=== PATIENT | female | born 1960 | race Caucasian/White ===

== ENCOUNTER 2022-03-02 14:09 | Inpatient (IN) | payer OTHER, SELFPAY ==
[2022-03-02] VITALS (11 sets, daily range): BP systolic 92–116; BP diastolic 46–62; PULSE 74–98; RESP 12–20; TEMP 36.2–36.9; O2SAT 93–100
--- NOTE | ~2022-03-02 | CT_ITS ---
EXAMINATION: CT abdomen pelvis wo con DATE: 03/02/2022 15:04 INDICATION: Right lower quadrant abdominal pain. TECHNIQUE: Computed tomography (CT) of the abdomen and pelvis was performed without intravenous contr ast. Automated exposure control and iterative reconstruction technique were employed. The dose-length product was 301.35 mGy-cm. COMPARISON: CT abdomen and pelvis 11/07/2018 FINDINGS: The visualized portions of the lung bases demonstrate mild atelectasis. No pleural effusion . The heart size normal. No pericardial effusion. There is diffuse hepatic steatosis. The gallbladder is distended, which may be secondary to fasting. The spleen, pancreas, adrenal glands, and right kid lissette are normal. There is mild atrophy of left kidney. There are 3 stones in left kidney measuring up to 12 mm. The appendix is fluid-filled and dilated to 14 mm with surrounding fat stranding, consisten t with appendicitis. There is trace pelvic ascites. There are no pathologically enlarged lymph nodes. There is moderate lumbar spondylosis. IMPRESSION: 1. Acute appendicitis. Reviewed, dictated and finalized at location A. IMPRESSION: 1. Acute appendicitis.
[2022-03-02 14:37] LABS: Basophils Absolute Auto 0.1 K/mm3 (0.0-0.1); Basophils Percent Auto 0.3 % (0.2-1.2); Eosinophils Absolute Auto 0.2 K/mm3 (0-0.3); Eosinophils Percent Auto 1.1 % (0-4.4); Hematocrit 32.2 % (37.0-47.0); Hemoglobin 9.8 g/dL (12.0-15.0); Immature Granulocyte Absolute 0.07 K/mm3 (0.00-0.031); Immature Granulocyte Percent A 0.4 % (0-0.5); Lymphocytes Absolute Auto 2.37 K/mm3 (0.9-3.2); Lymphocytes Percent Auto 12.4 % (18.3-44.2); Mean Corpuscular HGB Conc 30.4 g/dl (32-36); Mean Corpuscular Hemoglobin 25.6 pg (26-34); Mean Corpuscular Volume 84.1 fl (80-100); Mean Platelet Volume 9.2 fl (7.4-10.4); Monocytes Absolute Auto 1.3 K/mm3 (0.1-0.6); Neutrophils Absolute Auto 15.1 K/mm3 (1.3-6.7); Neutrophils Percent Auto 78.8 % (45.5-73.1); Platelet Count Result 266 k/mm3 (150-375); Red Blood Count 3.83 M/mm3 (4.2-5.4); Red Cell Distribution Width 16.7 % (11.5-14.5); White Blood Count 19.1 K/mm3 (4.5-10.0)
--- NOTE | 2022-03-02 14:47 | ED.ABDPAIN ---
HPI - Abdominal Pain General Chief Complaint: Abdominal Pain Stated Complaint: abdominal pain Time Seen by Provider: 03/02/22 14:19 Source: RN notes reviewed History of Present Illness HPI narrative: Patient presents emergency room from home for abdominal pain. Patient states the pain began 2 days ago. The pain is located right lower quadrant does not radiate described as sharp and stabbing. Associated nausea but denies any vomiting or diarrhea. States she did have a low-grade fever at home today states she took Tylenol and ibuprofen this morning with no relief Related Data Allergies Allergy/AdvReac Type Severity Reaction Status Date / Time No Known Allergies Allergy Verified 03/02/22 14:29 Review of Systems Review of Systems: Gen.: Denies fevers or chills ENT: Denies congestion Respiratory: Denies shortness of breath or cough CV: Denies chest pain or palpitations GI: see HPI Musculoskeletal: Denies back pain or muscle pain Neuro: Denies numbness, tingling, weakness or focal weakness Skin: Denies rash Except as documented, all other systems reviewed and negative PMFSH Past Medical History Medical History (Updated 03/02/22 @ 16:12 by Zachary Hooks DO) Hx of ectopic Kidney stones Surgical History Surgical History (Updated 03/02/22 @ 16:06 by Dany Thompson DO) Hx of knee surgery Hx of shoulder surgery Family History Family History (Updated 03/02/22 @ 16:06 by Dany Thompson DO) Mother Breast cancer Sibling Breast cancer Social History Social History Smoking status: Never smoker Exam Narrative: APPEARANCE: No acute distress, nontoxic, resting in bed HEENT: Normocephalic, atraumatic, OMM RESPIRATORY: No respiratory distress, clear to auscultation bilaterally with no rhonchi wheezing or rales CARDIOVASCULAR: RRR s murmur ABDOMINAL: Soft nondistended tender palpation right lower quadrant right upper quadrant no tenderness left upper quadrant left lower quadrant no rebound or guarding MUSCULOSKELETAl: Moves all extremities. No clubbing, cyanosis or edema. NEURO: Awake and alert. Following commands, speech normal, no focal deficits SKIN:: Warm, dry. Normal Color PSYCHIATRIC: Normal affect/mood Course Course Emergency Course: Discussed with Dr. thompson for general surgery who came to see patient in the emergency department will take the patient to the OR at this time Cussed with patient plan for OR in agreement Vital Signs Vital signs: Vital Signs Temperature 97.2 F L 03/02/22 14:10 Pulse Rate 98 03/02/22 14:10 Respiratory Rate 20 03/02/22 14:10 Blood Pressure 98/51 L 03/02/22 14:10 Pulse Oximetry 100 03/02/22 14:10 Temperature 98.5 F 03/02/22 15:37 Pulse Rate 85 03/02/22 15:37 Respiratory Rate 18 03/02/22 15:37 Blood Pressure 96/51 L 03/02/22 15:37 Pulse Oximetry 98 03/02/22 15:37 MDM - Abdominal Pain Lab Data Result diagrams: 03/02/22 14:30 03/02/22 15:53 Labs: Lab Results 03/02/22 03/02/22 03/02/22 Range/Units 14:30 14:30 14:58 WBC 19.1 H (4.5-10.0) K/mm3 RBC 3.83 L (4.2-5.4) M/mm3 Hgb 9.8 L (12.0-15.0) g/dL Hct 32.2 L (37.0-47.0) % MCV 84.1 (80-100) fl MCH 25.6 L (26-34) pg MCHC 30.4 L (32-36) g/dl RDW 16.7 H (11.5-14.5) % Plt Count 266 (150-375) k/mm3 MPV 9.2 (7.4-10.4) fl Immature Gran % (Auto) 0.4 (0-0.5) % Neut % (Auto) 78.8 H (45.5-73.1) % Lymph % (Auto) 12.4 L (18.3-44.2) % Park % (Auto) 7.0 (2.6-8.5) % Eos % (Auto) 1.1 (0-4.4) % Baso % (Auto) 0.3 (0.2-1.2) % Lymph # (Auto) 2.37 (0.9-3.2) K/mm3 Park # (Auto) 1.3 H (0.1-0.6) K/mm3 Eos # (Auto) 0.2 (0-0.3) K/mm3 Baso # (Auto) 0.1 (0.0-0.1) K/mm3 Abs Immat Gran (auto) 0.07 H (0.00-0.031) K/mm3 Absolute Neuts (auto) 15.1 H (1.3-6.7) K/mm3 Absolute Nucleated RBC 0.0
[2022-03-02 14:58] LABS: Lipase 67 U/L (23-300)
[2022-03-02 15:07] LABS: Bilirubin Urine Negative (Negative); Blood Urine 1+ (Negative); Color Urine Yellow (Yellow); Glucose Urine UA Negative (Negative); Ketones Urine Negative (Negative); Leukocyte Esterase Ur 3+ LEU/UL (Negative); Nitrate Urine Positive (Negative); Protein Urine 1+ mg/dL (Negative); Urobilinogen Urine 0.2 mg/dL (<2.0)
[2022-03-02 15:08] LABS: Add Urine Microscopic? YES; Appearance Urine Slightly Cloudy (Clear)
[2022-03-02 15:11] LABS: Bacteria Urine 1+ /hpf; Mucus Urine Rare /lpf; Squamous Epithelial Cell Urine Rare /hpf (Few); WBC Urine >75 /hpf
[2022-03-02] MEDS: ONDANSETRON INJ 4 MG/2 ML VIAL IV PUSH (15:12)
[2022-03-02] MEDS: SODIUM CHLORIDE 0.9% IV 1,000 ML 999 ML IV CONT (15:12)
[2022-03-02] MEDS: KETOROLAC 30 MG/ML VIAL (*BKC) IV PUSH (15:55)
--- NOTE | 2022-03-02 15:58 | PM.IMHP ---
H&P: HPI History of Present Illness Date/Time: 03/02/22 15:58 Chief Complaint: RLQ pain Narrative: This is a 61-year-old woman who presented to the emergency department today with right lower quadrant pain that started yesterday. She had been experiencing right back pain for about a week. She denied any hematuria. She had seen her chiropractor on Wednesday and an x-ray showed evidence of kidney stones. She was then referred to urology who saw the patient today and directed her to the emergency department. She did have a low-grade fever yesterday and has had some nausea. She denies any vomiting. Her bowels have not been moving normally, but she states this is partially due to the pain and that she does not want to strain to have a bowel movement. She has had a history of kidney stones before denies any prior pains quite like this. Review of Systems Review of Systems: All systems reviewed & are unremarkable except as noted in HPI and below Constitutional: Constitutional: Reports fever(s) Eyes: Eyes: Denies change in vision ENT: Denies hearing loss, Denies neck pain and Denies sore throat Cardiovascular: Cardiovascular: Denies chest pain and Denies dyspnea Respiratory: Respiratory: Denies cough, Denies dyspnea and Denies wheezing Gastrointestinal: Gastrointestinal: Reports as per HPI Genitourinary: Genitourinary: Denies hematuria and Denies dysuria Musculoskeletal: Musculoskeletal: Denies arthralgias, Denies joint swelling and Denies neck pain Allergic/Immunologic: Allergic/Immunologic: Denies wheezing PMFSH Past Medical History Medical History (Updated 03/02/22 @ 16:07 by Dany Thompson DO) Hx of ectopic Kidney stones Surgical History Surgical History (Updated 03/02/22 @ 16:06 by Dany Thompson DO) Hx of knee surgery Hx of shoulder surgery Family History Family History (Updated 03/02/22 @ 16:06 by Dany Thompson DO) Mother Breast cancer Sibling Breast cancer Social History Social History Smoking status: Never smoker Meds Home Medications and Allergies Allergies Allergy/AdvReac Type Severity Reaction Status Date / Time No Known Allergies Allergy Verified 03/02/22 14:29 Vital Signs Vital Signs - 24 hr 03/02/22 14:10 03/02/22 15:37 Temperature 36.2 C L 36.9 C Pulse Rate 98 85 Respiratory Rate 20 18 Blood Pressure 98/51 L 96/51 L Pulse Oximetry 100 98 Exam Const: General: alert; No acute distress Orientation/consciousness: patient oriented x3 Limitations: no limitations HENMT: Head: normocephalic and atraumatic Ears: hearing grossly normal bilaterally General nose exam: Normal external nose present and Normal nares present Mouth: Yes Normal oral and palatal mucosa present and Yes moist mucous membranes Eyes: General: appearance normal, both eyes and all related structures Conjunctivae: conjunctivae normal Sclera: sclerae normal Pupils: Equal, round and reactive pupils present EOM: EOMs intact bilaterally Neck: Neck: normal visual inspection, full ROM, no lymphadenopathy, supple and no JVD Lymphatic: no lymphadenopathy noted Chest: Chest palpation & inspection: normal inspection of the chest Resp: Effort & Inspection: normal respiratory effort and able to speak in complete sentences Auscultation: clear to auscultation bilaterally Percussion: percussion normal Cardio: Jugular venous distension: no JVD Rate: regular rate Rhythm: regular rhythm Heart sounds: S1 normal heart sound present and S2 normal heart sound present Peripheral pulses: Peripheral pulses 2+ throughout GI: Inspection: distended GI Palp: No abdominal tenderness, Yes Soft to palpation, Yes Tenderness to palpation present (GI) (R:Q), Yes Guarding due to palpation present (GI) (RLQ), No Hernia present and No Rebound tenderness present Percussion: Yes normal to percussion Auscultation: normal bowel sounds : General:
--- NOTE | 2022-03-02 16:09 | WPDHPUPDATE1 ---
History and Physical Update Update Date/Time: 03/02/22 16:09 History and Physical has been reviewed, including an updated exam of the patient. There are NO changes in the patient's condition. Risks, benefits, and alternatives have been discussed and questions answered. Patient agrees to proceed with procedure.
[2022-03-02 16:10] LABS: Lactic Acid Reflex 0.7 mmol/L (0.7-2.0)
[2022-03-02 16:16] LABS: Alanine Aminotransferase 17 U/L (6-35); Albumin Level 3.5 g/dL (3.5-5.1); Alkaline Phosphatase 83 U/L (38-126); Anion Gap 7 mmol/L (8-16); Aspartate Amino Transferase 25 U/L (14-36); Bilirubin,Total 0.9 mg/dL (0.2-1.3); Blood Urea Nitrogen 22 mg/dL (7-17); Calcium 8.1 mg/dL (8.4-10.2); Carbon Dioxide 27 mmol/L (22-30); Chloride 99 mmol/L (98-107); Estimated CRCL calculation 47 ml/min; Estimated Glomerular Filt Rate 57; Glucose 103 mg/dL (65-110); Potassium 3.7 mmol/L (3.4-5.0); Sodium 133 mmol/L (137-145)
--- NOTE | 2022-03-02 16:44 | WPDANESEPPF ---
Anes - Initial Pre Proc Eval Procedure: Operation Date: 03/02/22 17:30 Proposed Procedures p Laparoscopic Appendectomy Possible Open - Dany Thompson DO Date/Time: 03/02/22 16:44 Surgeon: Dany Thompson DO Pre Op Diagnosis: abdominal pain Patient Data Age: 61 Gender: F Height: 1.57 m Weight: 65.77 kg Last Vital Signs Temp 36.9 C 03/02/22 15:37 Pulse 85 03/02/22 15:37 Resp 18 03/02/22 15:37 BP 96/51 L 03/02/22 15:37 Pulse Ox 98 03/02/22 15:37 Allergies Allergy/AdvReac Type Severity Reaction Status Date / Time No Known Allergies Allergy Verified 03/02/22 14:29 Laboratory Tests 03/02/22 03/02/22 03/02/22 14:30 14:30 14:58 WBC 19.1 K/mm3 H K/mm3 (4.5-10.0) RBC 3.83 M/mm3 L M/mm3 (4.2-5.4) Hgb 9.8 g/dL L g/dL (12.0-15.0) Hct 32.2 % L % (37.0-47.0) MCV 84.1 fl fl (80-100) MCH 25.6 pg L pg (26-34) MCHC 30.4 g/dl L g/dl (32-36) RDW 16.7 % H % (11.5-14.5) Plt Count 266 k/mm3 k/mm3 (150-375) MPV 9.2 fl fl (7.4-10.4) Immature Gran % (Auto) 0.4 % % (0-0.5) Neut % (Auto) 78.8 % H % (45.5-73.1) Lymph % (Auto) 12.4 % L % (18.3-44.2) Alfalfa % (Auto) 7.0 % % (2.6-8.5) Eos % (Auto) 1.1 % % (0-4.4) Baso % (Auto) 0.3 % % (0.2-1.2) Lymph # (Auto) 2.37 K/mm3 K/mm3 (0.9-3.2) Alfalfa # (Auto) 1.3 K/mm3 H K/mm3 (0.1-0.6) Eos # (Auto) 0.2 K/mm3 K/mm3 (0-0.3) Baso # (Auto) 0.1 K/mm3 K/mm3 (0.0-0.1) Abs Immat Gran (auto) 0.07 K/mm3 H K/mm3 (0.00-0.031) Absolute Neuts (auto) 15.1 K/mm3 H K/mm3 (1.3-6.7) Absolute Nucleated RBC 0.0 K/mm3 K/mm3 (0.0-0.012) Nucleated RBC % 0.0 % % (0.0-0.2) Sodium Potassium Chloride Carbon Dioxide Anion Gap BUN Creatinine Estim Creat Clear Calc Estimated GFR Glucose Lactic Acid Calcium Total Bilirubin AST ALT Alkaline Phosphatase Total Protein Albumin Lipase 67 U/L U/L (23-300) Urine Color Yellow (Yellow) Urine Appearance Slightly cloudy (Clear) Urine pH 6.0 (5.0-9.0) Ur Specific Street 1.020 (1.001-1.035) Urine Protein 1+ mg/dL H mg/dL (Negative) Urine Glucose (UA) Negative mg/dL mg/dL (Negative) Urine Ketones Negative mg/dL mg/dL (Negative) Ur Blood (Man) 1+ H (Negative) Urine Nitrate Positive H (Negative) Urine Bilirubin Negative (Negative) Urine Urobilinogen 0.2 mg/dL mg/dL (<2.0) Leukocyte Esterase Rfl 3+ ADRIENNE/UL H ADRIENNE/UL (Negative) Urine RBC 6-10 /hpf H /hpf (0-2) Urine WBC >75 /hpf H /hpf Ur Squamous Epith Cells Rare /hpf /hpf (Few) Urine Bacteria 1+ /hpf H /hpf Urine Mucus Rare /lpf /lpf 03/02/22 03/02/22 15:53 15:53 WBC RBC Hgb Hct MCV MCH MCHC RDW Plt Count MPV Immature Gran % (Auto) Neut % (Auto) Lymph % (Auto) Alfalfa % (Auto) Eos % (Auto) Baso % (Auto) Lymph # (Auto) Alfalfa # (Auto) Eos # (Auto) Baso # (Auto) Abs Immat Gran (auto) Absolute Neuts (auto) Absolute Nucleated RBC Nucleated RBC % Sodium 133 mmol/L L mmol/L (137-145) Potassium 3.7 mmol/L mmol/L (3.4-5.0) Chloride 99 mmol/L mmol/L (98-107) Carbon Dioxide 27 mmol/L mmol/L (22-30) Anion Gap 7 mmol/L L mmol/L (8-16) BUN
[2022-03-02] MEDS: LACTATED RINGERS 1,000 ML 30 ML IV CONT ×2 (16:55→18:34)
[2022-03-02] MEDS: fentaNYL CITRATE INJ (*CRX) 100 MCG/2 ML VIAL 50 MCG IV PUSH (16:56)
--- NOTE | 2022-03-02 18:31 | W.PM.PROC2 ---
Procedure Note - Detailed Date of Procedure 03/02/22 Pre-op Diagnosis Acute appendicitis Post-op Diagnosis Other (Acute perforated appendicitis with intra-abdominal abscess) Procedure Performed 1. Laparoscopic appendectomy 2. Laparoscopic drainage of intra-abdominal abscess Surgeon Dany Thompson, DO Anesthesia General and Local (0.5% bupivicaine with epinephrine) Indications This is a 61-year-old woman who presented to the emergency department with abdominal pain that has been worsening over the past 2 days. She was also experiencing right back pain flank pain for the past week. She was found to have an elevated white blood count and CT showed evidence of acute appendicitis. Discussions were made with the patient about treatment options and decision was made to proceed with laparoscopic appendectomy, possible open. Findings Laparoscopic appendectomy was performed. The appendix was dilated and inflamed and there did appear to be perforation noted near the tip. There was a small abscess between the cecum and appendix in the right lower quadrant. This was drained and suctioned with a suction business analysis professional. No other purulence fluid was noted throughout the remainder of the abdomen. The patient did have some omental adhesions up to the lower midline from her prior surgery. These had to be taken down to adequately visualize the lower abdomen and right lower quadrant. Description of Procedure Procedure as well as risks, benefits, and alternatives were explained to the patient. The patient agreed to proceed. Written consent was obtained and placed in chart prior to procedure. The patient was brought back to surgical suite. She was placed supine on operating table. Time-out was done to confirm the patient and procedure. The patient was then intubated by the Anesthesia Department. Her abdomen was prepped and draped in sterile fashion using chlorhexidine prep. A 5 mm incision was made just to the left of the patient's umbilicus and a 5 mm Optiview trocar was advanced through the abdominal layers under direct visualization. Once inside the peritoneal cavity, carbon dioxide insufflation was used to create a pneumoperitoneum. The camera was inserted and the abdomen was inspected. No immediate abnormalities were identified. The patient was then placed in slight Trendelenburg position and rotated to the left. A 5 mm incision was made in the suprapubic region in midline and a 5 mm trocar was inserted under direct visualization. A 12 mm incision was made in the left lower quadrant and a 12 mm trocar was inserted under direct visualization. The right lower quadrant was carefully inspected. The cecum was identified and then this was traced back to the appendix. There was an abscess noted between the cecum and appendix containing some yellow purulence fluid. This was drained using the suction business analysis professional. The appendix was identified and grasped at the mesoappendix and lifted anteriorly. Careful blunt dissection was carried out at the base of the appendix through the mesoappendix using a [place] grasper. An Endo-HARVEY 45 mm blue load stapler was then advanced across the base of the appendix and clamped and fired. A white reload was then clamped across the mesoappendix and fired. This freed up our appendix completely. It was then placed in an EndoCatch bag and removed through the left lower quadrant port. The staple lines were then inspected. Hemostasis appeared adequate and the staple lines appeared secure. The area was then irrigated with sterile saline. The pelvis was then carefully inspected and irrigated with sterile saline as well and the remainder of the abdomen was carefully inspected. The patient was then flattened out in bed. One final inspection was made around the abdominal cavity and no other abnormalities were seen. The left lower quadrant port was removed and a Jay-Eveline cone was used to approximate the fascia with an 0 Vicryl simple interrupte
[2022-03-02] MEDS: LACTATED RINGERS 1,000 ML 100 ML IV CONT (21:49)
[2022-03-02] MEDS: HYDROcodone/acetaminophen (*CRX) 7.5-325 MG TABLET 1 TAB PO (22:41)
[2022-03-03] VITALS (7 sets, daily range): BP systolic 93–131; BP diastolic 58–72; PULSE 77–98; RESP 16–18; TEMP 36.1–37.1; O2SAT 94–98
[2022-03-03 06:15] LABS: Hematocrit 27.2 % (37.0-47.0); Hemoglobin 8.6 g/dL (12.0-15.0); Mean Corpuscular HGB Conc 31.6 g/dl (32-36); Mean Corpuscular Hemoglobin 26.3 pg (26-34); Mean Corpuscular Volume 83.2 fl (80-100); Mean Platelet Volume 9.6 fl (7.4-10.4); Platelet Count Result 225 k/mm3 (150-375); Red Blood Count 3.27 M/mm3 (4.2-5.4); Red Cell Distribution Width 16.4 % (11.5-14.5); White Blood Count 16.2 K/mm3 (4.5-10.0)
[2022-03-03 06:40] LABS: Anion Gap 3 mmol/L (8-16); Blood Urea Nitrogen 20 mg/dL (7-17); Calcium 8.4 mg/dL (8.4-10.2); Carbon Dioxide 29 mmol/L (22-30); Chloride 105 mmol/L (98-107); Estimated CRCL calculation 52 ml/min; Estimated Glomerular Filt Rate > 60; Glucose 151 mg/dL (65-110); Potassium 4.6 mmol/L (3.4-5.0); Sodium 137 mmol/L (137-145)
[2022-03-03] MEDS: HYDROcodone/acetaminophen (*CRX) 7.5-325 MG TABLET 1 TAB PO (09:23)
[2022-03-03] MEDS: ONDANSETRON INJ 4 MG/2 ML VIAL IV PUSH (09:23)
--- NOTE | 2022-03-03 12:43 | PM.PNGS ---
Progress Note: A&P Assessment and Plan (1) Acute appendicitis: Qualifiers: Acute appendicitis type: with localized peritonitis Appendicitis gangrene presence: without gangrene Appendicitis perforation presence: with perforation Appendicitis abscess presence: with abscess Qualified Code(s): K35.33 - Acute appendicitis with perforation and localized peritonitis, with abscess Code(s): K35.80 - Unspecified acute appendicitis Status: Acute Assessment and Plan: Slowly advanced diet as tolerated. Discuss with patient possibility of developing ileus secondary to infection. Continue IV Zosyn. Anticipate 1 or 2 more days in the hospital if continuing to slowly progress. Subjective Subjective Date/Time Seen: 03/03/22 12:43 Interval history: Pain controlled. No flatus. Still feeling bloated. No nausea/vomiting. Exam GI: Inspection: distended and incision (intact with glue) GI Palp: Yes Soft to palpation and Yes Tenderness to palpation present (GI) (RLQ and incisional) Auscultation: normal bowel sounds Objective Data Vital Signs Vital Signs: Vital Signs - 24 hr 03/02/22 14:10 03/02/22 15:37 03/02/22 16:57 Temperature 36.2 C L 36.9 C 36.3 C L Pulse Rate 98 85 82 Respiratory Rate 20 18 12 Blood Pressure 98/51 L 96/51 L 116/52 L Pulse Oximetry 100 98 99 Oxygen Delivery Room Air Room Air Oxygen Flow Rate 03/02/22 18:33 03/02/22 18:45 03/02/22 19:00 Temperature 36.3 C L Pulse Rate 74 79 79 Respiratory Rate 14 15 15 Blood Pressure 92/46 L 99/49 L 104/53 L Pulse Oximetry 100 100 100 Oxygen Delivery Simple Face Mask Simple Face Mask Simple Face Mask Oxygen Flow Rate 8 8 8 03/02/22 19:23 03/02/22 19:58 03/02/22 20:20 Temperature 36.5 C Pulse Rate 80 78 77 Respiratory Rate 14 16 18 Blood Pressure 96/56 L 99/62 L 101/51 L Pulse Oximetry 95 93 96 Oxygen Delivery Room Air Room Air Oxygen Flow Rate 03/02/22 20:50 03/02/22 21:50 03/03/22 01:50 Temperature 36.5 C 36.7 C 36.1 C L Pulse Rate 79 81 77 Respiratory Rate 18 18 18 Blood Pressure 106/55 L 107/59 L 93/58 L Pulse Oximetry 96 95 94 Oxygen Delivery Oxygen Flow Rate 03/03/22 05:50 03/03/22 08:00 Temperature 36.5 C Pulse Rate 79 Respiratory Rate 18 Blood Pressure 99/58 L Pulse Oximetry 94 96 Oxygen Delivery Room Air Oxygen Flow Rate Intake/Output Intake/Output: Intake & Output 02/28/22 03/01/22 03/02/22 03/03/22 23:59 23:59 23:59 23:59 Intake Total 1100 1130 Output Total 300 550 Balance 800 580 Meds/Results Medications: Active Medications Generic Name Dose Route Start Last Admin Trade Name Freq PRN Reason Stop Dose Admin Hydrocodone Bitart/Acetaminophen 1 tab 03/02/22 20:05 Hydrocodone/Acetaminophen (*Crx) 5-325 Mg Tablet PO Q4H PRN Pain Rated 4-6 Hydrocodone Bitart/Acetaminophen 1 tab 03/02/22 20:05 03/03/22 09:23 Hydrocodone/Acetaminophen (*Crx) 7.5-325 Mg Tablet PO 1 tab Q4H PRN Administration Pain Rated 7-10 Enoxaparin Sodium 40 mg 03/03/22 09:00 03/03/22 08:10 Enoxaparin 40 Mg/0.4 Ml Syringe SUB-Q Not Given DAILY RADHA Piperacillin Sod/Tazobactam Sod 2.25 gm in 50 mls @ 100 mls/hr 03/02/22 21:00 03/03/22 09:26 Zosyn 2.25 Gm/D5w 50 Ml IVPB 100 mls/hr Q6H RADHA Administration Ibuprofen 600 mg 03/02/22 20:05 Ibuprofen 600 Mg Tablet PO Q6H PRN Pain Rated 1-3 Morphine Sulfate 2 mg 03/02/22 20:05 Morphine Sulfate (*Crx) 2 Mg/Ml Inj IV PUSH Q2H PRN Pain Rated 4-6 Morphine Sulfate 4 mg 03/02/22 20:05 Morphine Sulfate (*Crx) 4 Mg/Ml Inj IV PUSH Q2H PRN Pain Rated 7-10 Ondansetron HCl 4 mg 03/02/22 20:05 03/03/22 09:23 Ondansetron Inj 4 Mg/2 Ml Vial IV PUSH 4 mg Q4H PRN Administration Nausea And Vomiting Radiology Results: ITS Impressions Abdomen/Pelvis CT 03/02/22 15:04 IMPRESSION: 1. Acute appendicitis. Labs Labs: Laborat
[2022-03-03] MEDS: MORPHINE SULFATE (*CRX) 4 MG/ML INJ IV PUSH (14:36)
[2022-03-03] MEDS: NEBIVOLOL HCL 5 MG TABLET PO (15:21)
[2022-03-03] MEDS: ATORVASTATIN 20 MG TABLET PO (15:21)
[2022-03-03] MEDS: PANTOPRAZOLE 40 MG TABLET PO (15:21)
--- NOTE | 2022-03-03 15:29 | PC.NURSE ---
Around 1300 patient was anxious and impulsive, wanting to leave AMA. Patient complained about IV pump and IV location. Patient is Post-OP Day 1 from Laparoscopic Appendectomy with perforation. Care Coordination and RN talked to patient about safety, care plan, and risk factors. Patient is agreeable to stay if IV is removed and replaced and last bag of fluids are discontinued. Dr. Thompson agreed to discontinuing the rest of the IV fluids but continue IV antibiotics. balance wheel hand filer placed new IV and fluids discontinued.
[2022-03-03] MEDS: DULoxetine HCL 60 MG CAPSULE.DR PO (17:56)
[2022-03-03] MEDS: AMITRIPTYLINE HCL 25 MG TABLET 50 MG PO (21:54)
[2022-03-04] VITALS (8 sets, daily range): BP systolic 102–118; BP diastolic 55–77; PULSE 73–91; RESP 18; TEMP 36.5–36.8; O2SAT 92–97
[2022-03-04 06:17] LABS: Hematocrit 25.1 % (37.0-47.0); Hemoglobin 7.6 g/dL (12.0-15.0); Mean Corpuscular HGB Conc 30.3 g/dl (32-36); Mean Corpuscular Hemoglobin 26.1 pg (26-34); Mean Corpuscular Volume 86.3 fl (80-100); Mean Platelet Volume 9.8 fl (7.4-10.4); Platelet Count Result 214 k/mm3 (150-375); Red Blood Count 2.91 M/mm3 (4.2-5.4); Red Cell Distribution Width 17.2 % (11.5-14.5); White Blood Count 11.9 K/mm3 (4.5-10.0)
[2022-03-04 06:26] LABS: Anion Gap 4 mmol/L (8-16); Blood Urea Nitrogen 16 mg/dL (7-17); Calcium 8.3 mg/dL (8.4-10.2); Carbon Dioxide 28 mmol/L (22-30); Chloride 106 mmol/L (98-107); Estimated CRCL calculation 52 ml/min; Estimated Glomerular Filt Rate > 60; Glucose 95 mg/dL (65-110); Potassium 3.9 mmol/L (3.4-5.0); Sodium 138 mmol/L (137-145)
[2022-03-04] MEDS: NEBIVOLOL HCL 5 MG TABLET PO (08:48)
[2022-03-04] MEDS: ATORVASTATIN 20 MG TABLET PO (08:48)
[2022-03-04] MEDS: PANTOPRAZOLE 40 MG TABLET PO (08:50)
[2022-03-04] MEDS: DULoxetine HCL 60 MG CAPSULE.DR PO ×2 (08:50→16:00)
--- NOTE | 2022-03-04 10:16 | PM.PNGS ---
Progress Note: A&P Assessment and Plan (1) Acute appendicitis: Qualifiers: Acute appendicitis type: with localized peritonitis Appendicitis abscess presence: with abscess Appendicitis gangrene presence: without gangrene Appendicitis perforation presence: with perforation Qualified Code(s): K35.33 - Acute appendicitis with perforation and localized peritonitis, with abscess Code(s): K35.80 - Unspecified acute appendicitis Status: Acute Assessment and Plan: Await return of bowel function Continue Zosyn IV (2) Acute blood loss anemia: Code(s): D62 - Acute posthemorrhagic anemia Status: Acute Assessment and Plan: Hold Lovenox this AM Baseline hemoglobin 9.8, so could be dilutional. HR and BP stable although BP has been slightly low this entire stay. Will recheck H/H at noon today. Discussed with patient possibly needing to repeat CT to look for source of bleeding if H/H continues to drop. (3) UTI (urinary tract infection): Code(s): N39.0 - Urinary tract infection, site not specified Status: Acute Subjective Subjective Date/Time Seen: 03/04/22 10:16 Interval history: Still a little bloated. No nausea or vomiting. No flatus or BM yet. Feels a little lightheaded. Exam GI: Inspection: distended GI Palp: Yes Soft to palpation, Yes Tenderness to palpation present (GI) (mostly at LLQ incision) and No Guarding due to palpation present (GI) Auscultation: Hypoactive bowel sounds present Objective Data Vital Signs Vital Signs: Vital Signs - 24 hr 03/03/22 14:00 03/03/22 15:21 03/03/22 21:58 Temperature 36.9 C 37.1 C Pulse Rate 98 86 77 Respiratory Rate 16 18 Blood Pressure 131/72 110/61 Pulse Oximetry 98 97 Oxygen Delivery 03/03/22 21:45 03/04/22 05:48 03/04/22 08:23 Temperature 36.8 C Pulse Rate 73 Respiratory Rate 18 Blood Pressure 102/55 L Pulse Oximetry 97 95 97 Oxygen Delivery Room Air Room Air 03/04/22 08:48 03/04/22 08:56 Temperature Pulse Rate 85 Respiratory Rate Blood Pressure 118/62 Pulse Oximetry Oxygen Delivery Intake/Output Intake/Output: Intake & Output 03/01/22 03/02/22 03/03/22 03/04/22 23:59 23:59 23:59 23:59 Intake Total 1100 2850 610 Output Total 300 925 Balance 800 1925 610 Meds/Results Medications: Active Medications Generic Name Dose Route Start Last Admin Trade Name Freq PRN Reason Stop Dose Admin Hydrocodone Bitart/Acetaminophen 1 tab 03/02/22 20:05 Hydrocodone/Acetaminophen (*Crx) 5-325 Mg Tablet PO Q4H PRN Pain Rated 4-6 Hydrocodone Bitart/Acetaminophen 1 tab 03/02/22 20:05 03/03/22 09:23 Hydrocodone/Acetaminophen (*Crx) 7.5-325 Mg Tablet PO 1 tab Q4H PRN Administration Pain Rated 7-10 Amitriptyline HCl 50 mg 03/03/22 21:00 03/03/22 21:54 Amitriptyline Hcl 25 Mg Tablet PO 50 mg HS RADHA Administration Atorvastatin Calcium 20 mg 03/03/22 09:00 03/04/22 08:48 Atorvastatin 20 Mg Tablet PO 20 mg DAILY RADHA Administration Duloxetine HCl 60 mg 03/03/22 17:00 03/04/22 08:50 Duloxetine Hcl 60 Mg Capsule.Dr PO 60 mg BID RADHA Administration Enoxaparin Sodium 40 mg 03/03/22 09:00 03/03/22 08:10 Enoxaparin 40 Mg/0.4 Ml Syringe SUB-Q Not Given DAILY RADHA Piperacillin Sod/Tazobactam Sod 2.25 gm in 50 mls @ 100 mls/hr 03/02/22 21:00 03/04/22 09:13 Zosyn 2.25 Gm/D5w 50 Ml IVPB Infused Q6H RADHA Infusion Ibuprofen 600 mg 03/02/22 20:05 Ibuprofen 600 Mg Tablet PO Q6H PRN Pain Rated 1-3 Morphine Sulfate 2 mg 03/02/22 20:05 Morphine Sulfate (*Crx) 2 Mg/Ml Inj IV PUSH Q2H PRN Pain Rated 4-6 Morphine Sulfate 4 mg 03/02/22 20:05 03/03/22 14:36 Morphine Sulfate (*Crx) 4 Mg/Ml Inj IV PUSH 4 mg Q2H PRN Administration Pain Rated 7-10 Nebivolol 5 mg 03/03/22 09:00 03/04/22 08:48 Nebivolol Hcl 5 Mg Tablet PO 5 mg DAILY RADHA Administrat
[2022-03-04 12:28] LABS: Hemoglobin 8.3 g/dL (12.0-15.0)
[2022-03-04] MEDS: polyethylene glycoL 3350 17 GM POWD.PACK PO (13:01)
[2022-03-04] MEDS: HYDROcodone/acetaminophen (*CRX) 7.5-325 MG TABLET 1 TAB PO (14:20)
[2022-03-04] MEDS: AMITRIPTYLINE HCL 25 MG TABLET 50 MG PO (23:06)
[2022-03-04] MEDS: IBUPROFEN 600 MG TABLET PO (23:09)
[2022-03-05 06:00] VITALS: BP 109/47; PULSE 64; RESP 16; TEMP 36.8; O2SAT 94
[2022-03-05 06:16] LABS: Basophils Absolute Auto 0.1 K/mm3 (0.0-0.1); Basophils Percent Auto 0.7 % (0.2-1.2); Eosinophils Absolute Auto 0.6 K/mm3 (0-0.3); Eosinophils Percent Auto 6.7 % (0-4.4); Hematocrit 26.5 % (37.0-47.0); Hemoglobin 8.1 g/dL (12.0-15.0); Immature Granulocyte Absolute 0.04 K/mm3 (0.00-0.031); Immature Granulocyte Percent A 0.4 % (0-0.5); Lymphocytes Absolute Auto 2.52 K/mm3 (0.9-3.2); Lymphocytes Percent Auto 26.3 % (18.3-44.2); Mean Corpuscular HGB Conc 30.6 g/dl (32-36); Mean Corpuscular Volume 85.2 fl (80-100); Mean Platelet Volume 9.2 fl (7.4-10.4); Monocytes Absolute Auto 0.8 K/mm3 (0.1-0.6); Monocytes Percent Auto 8.4 % (2.6-8.5); Neutrophils Absolute Auto 5.5 K/mm3 (1.3-6.7); Neutrophils Percent Auto 57.5 % (45.5-73.1); Platelet Count Result 232 k/mm3 (150-375); Red Blood Count 3.11 M/mm3 (4.2-5.4); Red Cell Distribution Width 17.2 % (11.5-14.5); White Blood Count 9.6 K/mm3 (4.5-10.0)
[2022-03-05] MEDS: polyethylene glycoL 3350 17 GM POWD.PACK PO (08:24)
[2022-03-05 08:25] VITALS: PULSE 72
[2022-03-05] MEDS: NEBIVOLOL HCL 5 MG TABLET PO (08:25)
[2022-03-05] MEDS: DULoxetine HCL 60 MG CAPSULE.DR PO (08:25)
[2022-03-05] MEDS: ATORVASTATIN 20 MG TABLET PO (08:26)
[2022-03-05] MEDS: PANTOPRAZOLE 40 MG TABLET PO (08:26)
--- NOTE | 2022-03-05 12:12 | PM.DS ---
DS: Admitting Diagnosis Discharge Date 03/05/22 Admitting Diagnosis Acute appendicitis UTI DS: Discharge Diagnosis Discharge Diagnosis (1) Acute appendicitis: Qualifiers: Acute appendicitis type: with localized peritonitis Appendicitis abscess presence: with abscess Appendicitis gangrene presence: without gangrene Appendicitis perforation presence: with perforation Qualified Code(s): K35.33 - Acute appendicitis with perforation and localized peritonitis, with abscess Code(s): K35.80 - Unspecified acute appendicitis Status: Acute Assessment and Plan: 03/02/22 - Laparoscopic appendectomy, laparoscopic drainage of intra-abdominal abscess - by Dr. Thompson (2) UTI (urinary tract infection): Code(s): N39.0 - Urinary tract infection, site not specified Status: Acute Assessment and Plan: UA suggestive of UTI. Urine culture showed growth of E.Coli with sensitivities noted. Will be sent home with an additional 7 days of augmentin and flagyl that would provide coverage for the perforated appendicitis and UTI. F/u with PCP. DS: Summary Hospital Course Reason for hospitalization: This is a 61-year-old woman who presented to the emergency department with right lower quadrant pain x 1 day and right back pain x 1 week.? She had seen her chiropractor and an x-ray showed evidence of kidney stones.? She was then referred to urology who saw the patient and directed her to the emergency department.? Workup in the ER showed evidence of acute appendicitis on CT with leukocytosis. UA also showed 1+ protein, 1+ blood, +nitrates, 3+ leukocytes, >75 WBC, 1+ bacteria, and rare squamous epithelial cells. Hospital Course: She was admitted to our service and started on broad-spectrum IV antibiotics. Decision was made to proceed with surgery. She underwent a laparoscopic appendectomy and laparoscopic drainage of intra-abdominal abscess by Dr. Thompson on 03/02/22. In surgery, she was found to have a perforation of the appendix near the tip with a small abscess between the cecum and appendix. Following surgery, she was transferred to the medical floor and IV antibiotics were continued. Her labs were monitored and her WBC count has continued to trend down to normal today. Her diet was slowly advanced due to the chance of an ileus. Serial labs also noted a drop in her hemoglobin post-operatively. Baseline labs showed that she was anemic with a hemoglobin of 9.8. Post-op day 1 her hemoglobin was 8.6 and post-op day 2 it was down to 7.6. She remained hemodynamically stable. H/H was rechecked later on post-op day 2 and showed a hemoglobin of 8.3. Labs were repeated again today and her hemoglobin remained stable. The drop in her hemoglobin was felt to likely be dilutional without any evidence of active bleeding. Post-op day 2, she also reported some bloating and lightheadedness. She increased her activity and began passing gas, and is feeling much better today. She reports her bloating has significantly improved and she is tolerating a regular diet. She has not yet had a bowel movement since surgery. She is stable for discharge and we recommended she continue taking the laxative or stool softener daily until her bowels return to normal. She also appeared to have a UTI on admission with her urine culture showing growth of E.coli sensitive to Augmentin. She will be sent home with another 7 days of oral antibiotics for the perforated appendicitis, which would also provide coverage for the UTI. Will have her return to the office for a follow-up in a few weeks. Status at Discharge Functional status at discharge: independent ambulation Overall status at discharge: patient is progressing back to baseline Time Spent with Patient Time attestation: Total time spent providing and/or coordinating discharge services: 60 minutes Time spent: Greater than 30 minutes Exam Const: General: comfortable, no acute distress and awake Orientation/conscious
--- NOTE | 2022-03-05 13:49 | PCCCNOTE ---
On 03/05/22, the student, [Alia Griggs], provided care and completed [facility] documentation on this patient. I have reviewed the student's documentation and agree with the findings.
== END 2022-03-05 13:30 | disposition home or self-care (01) | DRG 339 ==
LOC: ANHED 15:43 → ANHSURGERY 15:55 → ANH3MEDSUR 03-03 09:53
PROVIDERS: Admitting Provider Surgery; Emergency Provider Emergency Medicine; Visit Provider Nurse Practitioner Family
PROC: 0DTJ4ZZ Resection of Appendix, Percutaneous Endoscopic Approach (ICD-10-PCS; CPT 44970; principal; 2022-03-02 17:30)
DX: K35.33 Acute appendicitis with perforation, localized peritonitis, and gangrene, with abscess (principal); N39.0 Urinary tract infection, site not specified; B96.20 Unspecified Escherichia coli [E. coli] as the cause of diseases classified elsewhere; Z87.442 Personal history of urinary calculi
CPT/HCPCS: 36415; 74176; 80048; 80053; 81001; 83605; 83690; 85014; 85018; 85025; 85027; 87077; 87086; 87186; 88304; 96361; 96365; 96375; 99285; A9270; G0378; J0330; J1100; J1885; J2270; J2405; J2543; J2704; J3010; J7030; J7120

== ENCOUNTER 2022-04-02 15:39 | Outpatient (CLI) | payer OTHER, SELFPAY ==
[2022-04-02 16:22] LABS: Basophils Absolute Auto 0.1 K/mm3 (0.0-0.1); Basophils Percent Auto 1.4 % (0.2-1.2); Eosinophils Absolute Auto 0.5 K/mm3 (0-0.3); Eosinophils Percent Auto 6.5 % (0-4.4); Hematocrit 33.1 % (37.0-47.0); Hemoglobin 9.8 g/dL (12.0-15.0); Immature Granulocyte Absolute 0.04 K/mm3 (0.00-0.031); Immature Granulocyte Percent A 0.5 % (0-0.5); Lymphocytes Percent Auto 28.8 % (18.3-44.2); Mean Corpuscular HGB Conc 29.6 g/dl (32-36); Mean Corpuscular Volume 84.4 fl (80-100); Mean Platelet Volume 9.2 fl (7.4-10.4); Monocytes Absolute Auto 0.7 K/mm3 (0.1-0.6); Monocytes Percent Auto 7.9 % (2.6-8.5); Neutrophils Absolute Auto 4.6 K/mm3 (1.3-6.7); Neutrophils Percent Auto 54.9 % (45.5-73.1); Platelet Count Result 310 k/mm3 (150-375); Red Blood Count 3.92 M/mm3 (4.2-5.4); White Blood Count 8.3 K/mm3 (4.5-10.0)
[2022-04-02 16:35] LABS: Alanine Aminotransferase 31 U/L (6-35); Albumin Level 4.6 g/dL (3.5-5.1); Alkaline Phosphatase 100 U/L (38-126); Anion Gap 8 mmol/L (8-16); Aspartate Amino Transferase 41 U/L (14-36); Bilirubin,Total 0.1 mg/dL (0.2-1.3); Blood Urea Nitrogen 18 mg/dL (7-17); Calcium 9.3 mg/dL (8.4-10.2); Carbon Dioxide 28 mmol/L (22-30); Chloride 102 mmol/L (98-107); Estimated Glomerular Filt Rate 51; Glucose 85 mg/dL (65-110); Potassium 4.3 mmol/L (3.4-5.0); Sodium 138 mmol/L (137-145)
[2022-04-02 17:05] LABS: Anisocytosis 2+ (NORMAL); Platelet Estimate Adequate (Adequate)
[2022-04-02 17:06] LABS: Hypochromasia 1+ (NORMAL)
== END 2022-04-02 15:40 | disposition home or self-care (01) ==
LOC: ANHLAB 15:43
PROVIDERS: Visit Provider Surgery
DX: K35.20 Acute appendicitis with generalized peritonitis, without abscess (principal)
CPT/HCPCS: 36415; 80053; 85025

== ENCOUNTER → 2022-04-07 13:45 | Outpatient (CLI) | payer OTHER, SELFPAY ==
--- NOTE | ~2022-04-07 | CT_ITS ---
EXAMINATION: CT abdomen pelvis w con DATE: 04/07/2022 14:17 INDICATION: Recent acute appendicitis with generalized peritonitis (status post appendectomy 3 weeks ago). TECHNIQUE: Computed tomography (CT) of the abdomen and pelvis was performed with 100 CC Omnipaque 300 intravenous contrast. Automated exposure control and iterative reconstruction technique were employe d. Exam dose: 586.74 mGy-cm total exam DLP. COMPARISON: 03/02/2022 CT abdomen pelvis FINDINGS: The lung bases are clear of infiltrate or consolidation. Normal heart size. No pericardial or pleural effusion. There is diffuse hepatic steatosis. No hepatic space-occupying mass lesion or bile duct dilatation. T he gallbladder appears unremarkable. No pancreatic mass lesion, calcification or ductal dilatation. Normal splenic size. Several probable small splenules are identified in the perisplenic area in the l eft upper quadrant. Normal morphology of the adrenal glands. Very prominent lower pole left renal calcified calculi and prominent left renal scarring. Approximate ly 2 cm upper pole left renal cyst. No left ureteral calculus or hydroureteronephrosis. No right renal mass lesion or urinary tract calculus or hydroureteronephrosis. The urinary bladder is unremarkable. Uterus and adnexa Areas are unremarkable. There is atherosclerotic calcification of the abdominal aorta and calcification at the origins of the renal arteries. No abdominal aortic aneurysm. No intraperitoneal or retroperitoneal or pelvic mass l esion or adenopathy or ascites. Status post appendectomy. There is a prominent amount of fecal material within the colon right and tr ansverse colon but no bowel obstruction is evident. There is mild diverticulosis of the colon but no CT evidence of diverticulitis. No intraperitoneal free air. There is minimal fat stranding in the anterior lower mid abdomen, likely postoperative. No suspicious osteolytic or osteoblastic lesions IMPRESSION: Recent appendectomy Mild colonic diverticulosis; no CT evidence of diverticulitis Left renal prominent scarring and prominent nonobstructing lower pole calculi 2 cm left renal cyst Hepatic steatosis Reviewed, dictated and finalized at [facility]. Reviewed, dictated and finalized at [facility].
[2022-04-07 14:07] LABS: Estimated Glomerular Filt Rate 57
== END ==
PROVIDERS: Visit Provider Surgery
DX: K35.32 Acute appendicitis with perforation, localized peritonitis, and gangrene, without abscess (principal); K57.30 Diverticulosis of large intestine without perforation or abscess without bleeding; N28.1 Cyst of kidney, acquired
CPT/HCPCS: 74177; Q9967

== ENCOUNTER 2023-10-25 13:08 | Outpatient (CLI) | payer OTHER, SELFPAY | END 2023-10-25 13:09 | disposition home or self-care (01) | LOC: ANHAUDASC 13:09 | PROVIDERS: Visit Provider Otolaryngology | DX: H90.3 Sensorineural hearing loss, bilateral (principal) | CPT/HCPCS: 92557; 92567 ==